=== PATIENT | female | born 2005 ===

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

== ENCOUNTER 2025-03-14 12:06 | Outpatient (REF) | payer MEDICAID, SELFPAY ==
[2025-03-14 14:26] LABS: MANUAL DIFF FLAG NO
[2025-03-14 14:29] LABS: Hematocrit 34.7 % (37.0-47.0); Hemoglobin 11.2 g/dl (12.0-16.0); Imm Gran Abs Auto 0.01 X10*3/uL (0.00-0.03); Imm Gran Pct Auto 0.2 % (0.0-0.4); Lymphocytes Absolute Auto 1.8 X10*3/uL (1.2-4.9); Mean Corpuscular HGB Conc 32.3 g/dl (31.0-35.0); Mean Corpuscular Hemoglobin 27.9 pg (27.0-33.0); Mean Corpuscular Volume 86.3 fL (80.0-98.0); NRBC Abs Auto 0.000 X10*3/uL (0.0-0.012); NRBC Pct Auto 0.0 /100WBC (0.0-0.2); Platelet Count 465 X10*3/uL (160-400); Red Blood Count 4.02 X10*6/uL (4.20-5.50); White Blood Count 5.2 X10*3/uL (4.8-10.8)
[2025-03-14 15:34] LABS: Alanine Aminotransferase 10 U/L (0-31); Albumin Level 4.5 g/dL (3.5-5.0); Alkaline Phosphatase 74 U/L (39-117); Anion Gap 11 (12-20); Aspartate Amino Transferase 19 U/L (5-31); Blood Urea Nitrogen 11 mg/dL (9-16); Calcium 9.5 mg/dL (8.4-10.2); Carbon Dioxide 26 mmol/L (22-29); Chloride 106 mmol/L (96-108); Cholesterol 174 mg/dL (<200); Estimated Glomerular Filt Rate > 60; HDL Cholesterol 47 mg/dL (>40); Potassium 3.7 mmol/L (3.3-5.1); Sodium 139 mmol/L (135-145); Total Protein 7.8 g/dL (6.5-8.0); Triglycerides 73 mg/dL (<150)
--- OUTSIDE RECORDS SUMMARY | 2025-03-14 15:58 | XMS_ITS | Encounter Summary ---
Author Organization [employer] Address [address] [facility] [address] [place] [address] Care Team Providers Care Manager Heavy Equipment Name Role Phone Tressa Macdonald MD Primary Care Provide r Reason for Visit * Reason Onset Date Comments Med Refill 03/14/2025 Encounter Details Date Type Department Care Team ([facility] st Contact Info) Description 03/14/2025 Refill [facility] [address] [place], [place] [phone] Tressa Macdonald MD [address] [place] [address] Primary insomnia Social History Tobacco Use Types Packs/Day Years Used Date Smoking Tobacco: Never Smokeless Tobacco: Never Depression Answer Date Recorded Patient Health Questionnaire-9 Score 7 02/07/2025 Patient Health Questionnaire-9 Score 7 02/07/2025 Last PHQ-9: Questionnaire Data Not on file 1 04/09/2024 Housing Stability Answer Date Recorded What is your housing situation today? I have bill malin 01/31/[address] you li ve. Do you have problems with any of the following? None of the above 01/31/2025 Food Insecurity Answer Date Recorded Within the past 12 months, y ou worried that your food would run out before you got money to buy more: Never True 01/31/2025 Within the past 12 months,th e food you bought just didn't last and you didn't have enough money to get more: Never True 07/2024 Transportation Answer Date Recorded In the past 12 months, has l ack of transportation kept you from medical appts, meetings, work or from getting things needed for daily living? No 01/31/2025 Utilities Answer Date Recorded In the past 12 months, has t he electric, gas, oil or water company threatened to shut off services in your home? No 01/31/2025 Depression Answer Date Recorded Patient Health Questionnaire-2 Score 2 02/07/2025 Internet Access Answer Date Recorded Internet Access Q1 Yes 01/31/2025 Internet Access Q2 Not on file 01/31/2025 Comments Unknown Sex and Gender Information Value Date Recorded Sex Assigned at Female 01/26/2022 10:19 AM EDT Legal Sex Female 10:19 AM EDT Gender Identity unsure 01/26/2022 10:19 AM EDT Sexual Orientation Pansexual 02/02/2023 2: 39 PM EST documented as of this encounter Plan of Treatment Upcoming Encounters Date Type Department Care Team (Late st Contact Info) Description 2025 3:30 PM EST Telemedicine [facility] [address] [place] [phone] Tressa Macdonald MD [address] [place] [address] documented as of this encounter Visit Diagnoses Diagnosis Primary insomnia Persistent disorder of initiating or maintaining sleep documented in this encounter Additional Health Concerns Assessment Noted Time PHQ-9 Depression Total Score: 7 02/08/20 10:42 AM EST documented as of this encounter Care Teams Manager Heavy Equipment Relationship Specialty Start Date End Date Tressa Macdonald MD [address] [place] [address] PCP - General Internal Medicine 02/07/25 documented as of this encounter
--- OUTSIDE RECORDS SUMMARY | 2025-03-14 15:58 | XMS_ITS | Clinical Summary ---
Author Organization [employer] Address [address] [place] [address] 7t [place] [address] Care Team Providers Care Clam Bed Worker Name Role Phone Tressa Macdonald MD Primary Care Provide r Allergies No known active allergies Medications Ketostix strip PLEASE SEE ATTACHED FOR DETAILED DIRECTIONS 3 Active Alcohol Swabs (B-D SINGLE USE SWABS REGULAR) pads FOR MANAGEMENT OF TYPE 1 DIABETES - CHECK BLOOD SUGAR 6-7 X/DAY 3 Active Continuous Blood Gluc Sensor (Dexcom G6 Sensor) [facility] [place] 3 Active Continuous Blood Gluc Transmit (Dexcom G6 transmitter) [facility] [place] 3 Active cetirizine (ZyrTEC) 10 MG tablet TOME CHRISTINE TABLETA POR V A ORAL TODOS LOS D CUANDO SEA NECESARIO FOR ALLERGY SYMPTOMS 2 Active Contour Next Test test strip USE TO CHECK BLOOD SUGAR UP TO 6 TIMES DAILY. E10.65. 3 Active fluticasone (Flonase) 50 MCG/ACT nasal spray TAKE 1 SPRAY IN EACH NOSTRIL NASALLY ONCE A DAY 2 Active [facility] Glucose 4-6 GM-MG oral gel FOR MANAGEMENT OF TYPE 1 DIABETES, TAKE 4 TABS FOR BLOOD GLUCOSE LESS THAN 70 3 Active Insulin Lispro 100 UNIT/ML solution MAX DAILY DOSE 100 UNITS. E10.65. 3 Active BD Insulin Syringe U/F 31G X /16 0.3 ML [facility] [place] IDDM. USED TO INJECT INSULIN UP TO 5X/DAY 3 Active melatonin 10 MG tabletIndicatio ns:Primary insomnia Take 1 tablet (10 mg) by mouth at bedtime. 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) 01/2025 Depressive disorder 01/28/2023 01/28/2023 Difficulty sleeping 01/28/2023 01/28/2023 Myopia, bilateral 01/28/2023 01/28/2023 Acute lymphoid leukemia in remission ([facility]) 0 08/23/2018 01/28/2023 Allergic rhinitis 08/23/2018 01/28/2023 Dysmenorrhea 07/01/2018 01/28/2023 Type 1 diabetes mellitus 05/21/2016 023 Resolved Problems Problem Noted Date Diagnosed Date Resolved Date 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 Encounters Date Type Department Care Team Description 03/14/2025 Refill [facility] [address] [place] [phone] Tressa Macdonald MD Primary insomnia 03/12/2025 Travel 02/07/2025 9:30 AM EST Office Visit [address] [address] Tressa Macdonald MD Type 1 diabetes mellitus without complications (HCC); Primary insomnia; Depressive disorder; Acute lymphoid leukemia in remission ([facility]) (HCC); Discoloration of skin; Encounter for immunization 02/07/2025 Travel 02/06/[address] [address] Lilia Thorne MD Chart Prep 02/06/2025 Travel 01/31/2025 Patient Outreach [address] [address] Lilia Thorne MD Pre-visit Planning (SDOH screening negative and Tobacco screening negative) 12/18/[address] [address] Lilia Thorne MD OUTREACH from Last 3 Months Immunizations Immunization Administration Dates Next Due DTaP 09/15/2006,2005,2005 DTaP, 5 pertussis antigens 2005 HPV 9-Valent 05/24/2017,05/22/2016 Hep A, ped/adol, 2 dose 12/21/2006,04/16/2006 Hep B, Adolescent or Pediatric 2005,2005,2005 HiB, unspecified 06/24/2006,2005, 6 Hib (PRP-T) 2005 INFLUENZA INJECTABLE QUADRIV ALANT CCIIV4 MDCK Multi-dose vial 01/06/2018 IPV 06/16/2018, 7,2005,05/21 Influenza injectable quadriv alent preservative free 12/12/2021,05/24/2019,06/16/2018,05/24,01/27/2016,12/28/2014 Influenza live intranasal qu adrivalent LIAV4 01/11/2014 Influenza, IIV3, injectable 01/06/2018 Influenza, injectable, quadr ivalent, preservative free, pediatric 12/21/2006 Influenza, seasonal, injecta ble, preservative free 02/07/2025 MMR 05/24/2017,04/16/2006 Meningococcal MCV4P ACYW-135 12/12/2021,05/22/19 17 Pneumococcal Conjugate PCV 13 09/15/2006 ,03/01/2006,2005,06/26 Pneumococcal Conjugate PCV 20 02/07/2025 Tdap 05/22/2016 Varicella 05/24/2017,04/16/2006 Social History Tobacco Use Types Packs/Day Years Used Date Smoking Tobacco: Never Smokeless Tobacco: Never Tobacco Cessation:Counseling Given: Not Answered Depression Answer Date Recorded Patient Health Questionnaire-9 Score 7 02/07/2025 Patient Health Questionnaire-9 Score 7 02/07/2025 Last PHQ-9: Questionnaire Data Not on file 1 04/09/2024 Housing Stability Answer Date Recorded What is your housing situation today? I have bill mailn 01/31/[address] you li [...] Orientation Pansexual 02/02/2023 2: 39 PM EST Last Filed Vital Signs Vital Sign Reading Time Taken Comments Blood Pressure 106/72 02/07/2025 9:47 AM EST Pulse 99 02/07/2025 9:47 AM EST Temperature 33.3 C (92 F) 02/07/2025 9:47 AM EST Respiratory Rate 22 02/07/2025 9:47 AM EST Oxygen Saturation 99% 02/07/2025 9:47 AM EST Inhaled Oxygen Concentration - - Weight 51.6 kg (113 lb 12.8 oz) 02/07/2025 9:47 AM EST Height 147.3 cm (4' 10 ) 02/07/2025 9:47 AM EST Body Mass Index 23.78 02/07/2025 9:47 AM EST Plan of Treatment Upcoming Encounters Date Type Department Care Team (Late st Contact Info) Description 2025 3:30 PM EST Telemedicine [facility] [address] [place], [place] [phone] Tressa Macdonald MD [address] [place], [place] [phone] Health Maintenance Due Date Last Done Comments HIV Screening 2005 Fluoride Varnish 2005 Diabetes: Foot Exam 2015 Eye Exam 2015 Alcohol/Substance Use Screening 2017 HPV Vaccines (3 - Risk 3-dose series) 09/21/2017 05/24/2017, 05/22/2016 Family Planning (PISQ) 2020 Meningococcal B Vaccine (1 of 2 - Standard) 2021 Hepatitis C Screening 2023 Chlamydia and Gonorrhea Screening 02/03/2024 02/02/2023 Zoster Vaccines (1 of 2) 2024 Diabetes: Urine Protein Screening 05/25/2024 05/25/2023, 11/11/2021 COVID-19 Vaccine ( season) 2024 09/09/2021, 10/23/2020, 10/03/2020 Diabetes: Hemoglobin A1C 05/10/2025 02/07/2025 SDOH Screening 01/31/2026 01/31/2025 Disability Screening 02/06/2026 02/06/2025 Depression Screening 02/07/2026 02/07/2025, 02/08/20 Tobacco Screening 02/07/2026 02/07/2025 Lipid Panel 03/14/2026 03/14/2025 DTaP/Tdap/Td Vaccines (6 - Td or Tdap) 05/22/2026 05/22/2016, 09/15/2006, 2005, Additional history exists RSV Patients and Patients Aged 60 years or older (1 - 1-dose 75+ series) 2080 Hepatitis B Vaccines Completed 2005, 2005, 2005 HIB Vaccines Completed 06/24/2006, 09/2005, 2005, Additional history exists Hepatitis A Vaccines Completed 12/21/2006, 04/16/19 07 MMR Vaccines Completed 05/24/2017, 04/16/2006 Varicella Vaccines Completed 05/24/2017, 04/16/2006 IPV Vaccines Completed 06/16/2018, 05/28, 2005, Additional history exists Meningococcal Vaccine Completed 12/12/2021, 017 Influenza Vaccine Completed 02/07/2025, , 05/24/2019, Additional history exists Pneumococcal Vaccine: Pediatrics (0 to 5 Years) and At-Risk Patients (6 to 49) Years Completed 02/07/2025, 09/15/2006, 03/01/2006, Additional history exists RSV under 20 months Aged Out No longe r eligible based on patient's age to complete this topic Rotavirus Vaccines Aged Out No longer eligible based on patient's age to complete this topic Procedures Procedure Name Priority Date/Time Associated Diagnosis Comments TSH W/REFLEX TO FT4 Routine 03/14/2025 1 2:23 PM EST Type 1 diabetes mellitus without complications (HCC) VITAMIN D,25-OH,TOTAL,IA Routine 03/14/2025 12:23 PM EST Type 1 diabetes mellitus without complications (HCC) LIPID PANEL, STANDARD Routine 03/14/2025 12:23 PM EST Type 1 diabetes mellitus without complications (HCC) COMPREHENSIVE METABOLIC PANEL Routine 03/14/2025 12:23 PM EST Type 1 diabetes mellitus without complications (HCC) CBC WITH AUTO DIFFERENTIAL Routine 03/14/2025 12:23 PM EST Type 1 diabetes mellitus without complications (HCC) POCT GLYCATED HEMOGLOBIN, TOTAL Routine 02/07/2025 9:50 AM EST Type 1 diabetes mellitus without complications (HCC) POCT GLUCOSE Routine 02/07/2025 9:50 AM EST Type 1 diabetes mellitus without complications (HCC) CHLAMYDIA/N. GONORRHOEAE RNA, TMA, UROGENITAL Routine 02/02/2023 3:51 PM EST Encounter for routine child health examination without abnormal findings from Last 3 Months or Most Recently Relevant to Health Maintenance Results * (ABNORMAL) Vitamin D, 25-Hydroxy, Total, Immunoassay (03/14/2025 12:23 PM EST) Vitamin D 25-OH Total 15.0(L) >30 ng/mL [facility] Comment: Health Based Reference Values*< 20 ng/mL Virwyevoe25-10 ng/mL Insufficient> 30 ng/mL Sufficient*Edwin MARTINEZ. N Engl J Med. 2007;357:266-280There is no well-established upper level of normal vitamin Dlevels. Some laboratories use 50 ng/mL as an upper limit ofnormal. However, toxicity is patient-dependent and may occurat any level. Careful correlation with the patient'spresentation is necessary and, if there is concern forvitamin D toxicity, treatment should be consideredirrespective of the serum level.Care must be taken in interpreting Vitamin D results fromdifferent laboratories and methodologies. Published datademonstrated that results from patients undergoinghemodialysis may show a negative bias when tested withvarious automated 25-OH vitamin D assays when compared toLC-MS/MS.When testing samples from patients whose predominant form ofVitamin D is Vitamin D2, such as patients receiving VitaminD2 supplementation, results that are subtherapeutic shouldbe confirmed with another method such as LC-MS/MS. Blood Venous blood specimen / Unknown 03/14/2025 12:23 PM EST 03/14/2025 2:25 PM EST us Tressa Masterson MD LAB BLOOD ORDERABLES Final Result Performing Organization Address [facility]/ZIP Co de Phone Number [facility] [address] [place] [phone] * TSH with Reflex to Free T4 (03/14/2025 12:23 PM EST) TSH reflex Free T4 1.25 0.32 - 4.0 uIU/mL [facility] Blood Venous blood specimen / Unknown 03/14/2025 12:23 PM EST 03/14/2025 2:25 PM EST us Tressa Masterson MD LAB BLOOD ORDERABLES Final Result Performing Organization Address City/[facility]/ZIP Co de Phone Number [facility] [address] [place] [phone] * (ABNORMAL) CBC auto differential (03/14/2025 12:23 PM EST) White Blood Count 5.2 4.8 - 10.8 X10*3/uL [facility] Red Blood Count 4.02(L) 4.20 - 5.50 X10*6/uL [facility] Hemoglobin 11.2(L) 12.0 - 16.0 g/dl [facility] Hematocrit 34.7(L) 37.0 - 47.0 % [facility] Mean Corpuscular Volume 86.3 80.0 - 98.0 fL [facility] Mean Corpuscular Hemoglobin 27.9 27.0 - 33.0 pg [facility] Mean Corpuscular HGB Conc 32.3 31.0 - 35.0 g/dl [facility] Red Cell Distribution Width 12.6 11.0 - 16.0 % [facility] Platelet Count 465(H) 160 - 400 X10*3/uL [facility] Mean Platelet Volume 9.1(L) 9.4 - 12.3 fL [facility] Neutrophils Percent Auto 57.9 45 - 73 % [facility] Imm Gran Pct Auto 0.2 0.0 - 0.4 % [facility] Lymphocytes Percent Auto 35.2 20 - 40 % [facility] Monocytes Percent Auto 4.4 2 - 11 % [facility] Eosinophils Percent Auto 1.9 0 - 4 % [facility] Basophils Percent Auto 0.4 0 - 2 % [facility] NRBC Pct Auto 0.0 0.0 - 0.2 /100WBC [facility] Neutrophils Absolute Auto 3.0 2.0 - 8.3 x10*3/uL [facility] Imm Gran Abs Auto 0.01 0.00 - 0.03 X10*3/uL [facility] Lymphocytes Absolute Auto 1.8 1.2 - 4.9 X10*3/uL [facility] Monocytes Absolute Auto 0.2 0.1 - 1.2 X10*3/uL [facility] Eosinophils Absolute Auto 0.1 0.0 - 0.4 X10*3/uL [facility] Basophils Absolute Auto 0.0 0.0 - 0.2 X10*3/uL [facility] NRBC Abs Auto 0.000 0.0 - 0.012 X10*3/uL [facility] Blood Venous blood specimen / Unknown 03/14/2025 12:23 PM EST 03/14/2025 2:22 PM EST us Tressa Masterson MD LAB BLOOD ORDERABLES Final Result Performing Organization Address City/[facility]/ZIP Co de Phone Number [facility] [address] [place] [phone] * (ABNORMAL) Lipid Panel, Standard (03/14/2025 12:23 PM EST) Triglycerides 73 <150 mg/dL [facility] Comment:Desirable Triglyceri de: less than 90 mg/dLBorderline High Triglyceride: 90-129 mg/dLHigh Triglyceride: greater than 130 mg/dL Cholesterol 174 <200 mg/dL [facility] Comment:Desirable Cholestero l: less than 170 mg/dLBorderline High Cholesterol: 170-199 mg/dLHigh Cholesterol: greater than 200 mg/dL LDL Cholesterol Calculated 113(H) <100 mg/dL [facility] Comment:Desirable LDL: less than 110 mg/dLBorderline LDL: 110-129 mg/dLHigh LDL: greater than or equal to 130 mg/dL HDL Cholesterol 47 >40 mg/dL [facility] Comment:Desirable HDL: great er than 45 mg/dLBorderline HDL: 40-45 mg/dLLow HDL: less than 40 mg/dL Note: This HDL assay may give artificially low results in patients with liver disease. Blood Venous blood specimen / Unknown 03/14/2025 12:23 PM EST 03/14/2025 2:25 PM EST us Tressa Masterson MD LAB BLOOD ORDERABLES Final Result [facility] [address] [place] [phone] * (ABNORMAL) Comprehensive Metabolic Panel (03/14/2025 12:23 PM EST) Sodium 139 135 - 145 mmol/L [facility] Potassium 3.7 3.3 - 5.1 mmol/L [facility] Chloride 106 96 - 108 mmol/L [facility] Carbon Dioxide 26 22 - 29 mmol/L [facility] Anion Gap 11(L) 12 - 20 [facility] Urea Nitrogen (BUN) 11 9 - 16 mg/dL [facility] Creatinine, Serum 0.53 0.5 - 1.4 mg/dL [facility] Estimated Glomerular Filt Rate >60 [facility] Comment:Chronic Kidney Disea se: Estimated GFR < 60 mL/min/1.31x2Tbkrvi Kidney Disease: Estimated GFR < 15 mL/min/1.73m2 Glucose 78 60 - 115 mg/dL [facility] Calcium 9.5 8.4 - 10.2 mg/dL [facility] Bilirubin, Total 0.2 0.0 - 1.0 mg/dL [facility] Aspartate Amino Transferase 19 5 - 31 U/L [facility] Alanine Aminotransferase 10 0 - 31 U/L [facility] Total Protein 7.8 6.5 - 8.0 g/dL [facility] Albumin Level 4.5 3.5 - 5.0 g/dL [facility] Alkaline Phosphatase 74 39 - 117 U/L [facility] Blood Venous blood specimen / Unknown 03/14/2025 12:23 PM EST 03/14/2025 2:25 PM EST us Tressa Masterson MD LAB BLOOD ORDERABLES Final Result [facility] [address] [place] [phone] * (ABNORMAL) POCT Hgb A1c (02/07/2025 9:50 AM EST) Pathologist [facility] Hemoglobin A1C 8.4(A) 4.0 - 5.7 % QC Media Lot # [id number] Lot# Expiration Date Blood 02/07/2025 9:50 AM EST Tressa Masterson MD POINT OF CARE TEST EN TER/EDIT ORDERABLES Final Result * (ABNORMAL) POCT Glucose (02/07/2025 9:50 AM EST) [facility] Glucose Blood, POC 230(A) 60 - 200 mg/dL QC Media Lot # [id number] Lot# Expiration Date 772 Blood Capillary blood specimen / Unknown 02/07/2025 9:50 AM EST Tressa Masterson MD POINT OF CARE TEST EN TER/EDIT ORDERABLES Final Result * Chlamydia/N. Gonorrhoeae RNA, TMA, Urogenitial (02/02/2023 3:51 PM EST) [facility] CT PCR NOT DETECTED Not Detect. [facility] Comment:A not detected test result does not exclude the possibilityof infection because test results can be affected byimproper specimen collection, concurrent antibiotic therapy,or the number of organisms in the specimen which may bebelow the sensitivity of the test. As with many diagnostictests, results from the Xpert CT/NG assay should beinterpreted in conjunction with other laboratory andclinical data available to the clinician.Xpert CT/NG performance has not been evaluated in patientsless than 14 years of age. The assay should not be used forthe evaluationof suspected sexual abuse or for other medico-legalindications. Additional testing is recommended in anycircumstance when false positive or false negative resultscould lead to adverse medical, social or psychologicalconsequences. NG PCR NOT DETECTED Not Detect. [facility] Comment:A not detected test result does not exclude the possibilityof infection because test results can be affected byimproper specimen collection, concurrent antibiotic therapy,or the number of organisms in the specimen which may bebelow the sensitivity of the test. As with many diagnostictests, results from the Xpert CT/NG assay should beinterpreted in conjunction with other laboratory andclinical data available to the clinician.Xpert CT/NG performance has not been evaluated in patientsless than 14 years of age. The assay should not be used forthe evaluationof suspected sexual abuse or for other medico-legalindications. Additional testing is recommended in anycircumstance when false positive or false negative resultscould lead to adverse medical, social or psychologicalconsequences. Urine (Urine, Random) 02/02/2023 3:51 PM EST 02/02/2023 6:17 PM EST Narrative [facility] - 02/03/2023 3:30 AM EST Urine us Lilia Domingo MD LAB MICROBIOLOGY - GENERAL ORDERABLES Final Result [facility] [address] [place] [phone] from Last 3 Months or Most Recently Relevant to Health Maintenance Insurance [employer] Care Teams Clam Bed Worker Relationship Specialty Start Date End Date Tressa Macdonald MD [address] [place] [address] PCP - General Internal Medicine 02/07/25
--- OUTSIDE RECORDS SUMMARY | 2025-03-14 15:58 | XMS_ITS | Encounter Summary ---
Author Organization [employer] Address [address] [facility] [address] [place] [address] Care Team Providers Care [employer] Name Role Phone Tressa Macdonald MD Primary Care Provide r Encounter Details Date Type Department Care Team (Latest Contact Info) Description 03/12/2025 Travel Social History Tobacco Use Types Packs/Day Years [...] Info) Description 2025 3:30 PM EST Telemedicine [facility] [address] [place] [address] Tressa Macdonald MD [address] [place] [phone] documented as of this encounter Visit Diagnoses Not on filedocumented in this encounter Additional Health Concerns Assessment Noted Time PHQ-9 Depression Total Score: 7 02/08/20 10:42 AM EST documented as of this encounter Care Teams [employer] Relationship Specialty Start Date End Date Tressa Macdonald MD [address] [place] [phone] PCP - General Internal Medicine 02/07/25 documented as of this encounter
--- OUTSIDE RECORDS SUMMARY | 2025-03-14 15:58 | XMS_ITS | Encounter Summary ---
Author Organization [facility] Address [address] [place] [address] [address] [place] [address] Care Team Providers Care Junior Art Director Name Role Phone Lilia Thorne MD Primary Care Provider [phone] Tressa Macdonald MD Primary Care Provide r Reason for Visit * Reason Comments Med Refill Encounter Details Date Type Department Care Team (Late st Contact Info) Description 04/03/2023 Refill [facility] PEDIATRICS [address] [place], [place] [phone] Lilia Thorne MD [address] [place], [place] [phone] Social History Tobacco Use Types Packs/Day Years Used Date Smoking Tobacco: Never Assessed Depression Answer Date Recorded Patient Health Questionnaire-9 Score 7 02/02/2023 Patient Health Questionnaire-9 Score 7 02/02/2023 Last PHQ-9: Questionnaire Data Not on file 1 04/04/2022 Housing Stability Answer Date Recorded What is your housing situation today? I have bill malin 01/26/[address] you li ve. Do you have problems with any of the following? None of the above 01/26/2023 Food Insecurity Answer Date Recorded Within the past 12 months, y ou worried that your food would run out before you got money to buy more: Sometimes True 2022 Within the past 12 months,th e food you bought just didn't last and you didn't have enough money to get more: Sometimes True 01/26/2023 Transportation Answer Date Recorded In the past 12 months, has l ack of transportation kept you from medical appts, meetings, work or from getting things needed for daily living? No 01/26/2023 Utilities Answer Date Recorded In the past 12 months, has t he electric, gas, oil or water company threatened to shut off services in your home? No 01/26/2023 Depression Answer Date Recorded Patient Health Questionnaire-2 Score 1 02/02/2023 Comments Unknown Sex and Gender Information Value [...] [facility] MEDICINE [address] [place] [id number] Tressa Macdonald MD [address] [place] [id number] documented as of this encounter Visit Diagnoses Not on filedocumented in this encounter Additional Health Concerns Assessment Noted Time PHQ-9 Depression Total Score: 7 02/03/20 23 1:46 PM EST documented as of this encounter Care Teams Junior Art Director Relationship Specialty Start Date End Date Lilia Thorne MD [address] [place] [id number] PCP - General Pediatrics 08/23/18 02/06/25 Tressa Macdonald MD [address] [place] [id number] PCP - General Internal Medicine 02/07/25 documented as of this encounter
[2025-03-14 16:14] LABS: Microalbum/Creatinine Ratio Ur 32.5 ug/mg cr (<30)
[2025-03-15 04:51] LABS: HIV Num 1 0.05 S/CO (0.00-0.99); ~HepC Num1 0.08 S/CO (0.00-0.79); ~Hepatitis C Antibody Nonreactive (Nonreactive)
== END 2025-03-14 12:07 | disposition home or self-care (01) ==
LOC: HO.HHCL 12:06
PROVIDERS: PCP Internal Medicine; Visit Provider Internal Medicine
DX: E10.9 Type 1 diabetes mellitus without complications (principal); Z11.4 Encounter for screening for human immunodeficiency virus [HIV]; Z11.59 Encounter for screening for other viral diseases
CPT/HCPCS: 36415; 80053; 80061; 82043; 82306; 82570; 84443; 85025; 86803; 87389